=== PATIENT | male | born 1990 | race Caucasian/White ===

== ENCOUNTER 2017-11-21 14:07 | Observation (INO) | payer OTHER ==
[2017-11-21] MEDS ORDERED: NS 1,000 ML IV ONE (15:51)
--- NOTE | 2017-11-21 15:52 | EDPHY ---
H & P Stated Complaint: periumbilical pain since 10 am Time Seen by Provider: 11/21/17 15:50 HPI/ROS: HPI: This is a 27-year-old male who presents with Chief Complaint: Periumbilical pain since 10:00 a.m. Location: Periumbilical Quality: Acute sharp pain Duration: Since 10:00 a.m. Signs and Symptoms: no fever, + nausea, no vomiting, no hematemesis, no blood in stool, no abdominal bloating, no diarrhea, no back pain, no urinary symptoms , no testicular/groin pain, no indigestion, no chest pain, no shortness of breath Timing: Acute Severity: 01/15 Context: Patient has a history of irritable bowel syndrome presents with sudden onset of periumbilical pain around 10:00 a.m. 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 Denies any vomiting, diarrhea, fevers, urinary symptoms. Patient reports that he had abdominal fullness and cramping around 8:00 a.m. this morning in his "upper stomach." He felt like he needed to use the bathroom. He went to use the bathroom and had a bowel movement but the pain did not relieve itself. Patient denies any radiation of the pain. No history of abdominal surgeries. Last meal was breakfast this morning at 8:00 a.m. Modifying Factors: None Comment: ROS: see HPI Constitutional: No fever, no chills, no weight loss Eyes: No blurred vision Respiratory: No shortness of breath, no cough Cardiovascular: No chest pain, no palpitations Gastrointestinal: + nausea, no vomiting, no diarrhea, no hematemesis, no blood in stool Genitourinary: No dysuria, no blood in urine Extremities: No myalgias, no edema Neurologic: No weakness, no numbness Skin: No rashes, no petechiae Hematologic: No bruising, no bleeding MEDICAL/SURGICAL/SOCIAL HISTORY: Medical history: Irritable bowel syndrome, testicular torsion as a child, depression, GERD Surgical history: Denies Social history: Never smoked. Family history noncontributory. CONSTITUTIONAL: Nontoxic-appearing young adult white male, awake and alert, no obvious distress HEENT: Atraumatic and normocephalic, PERRL, EOMI. Nares patent; no rhinorrhea; no nasal mucosal edema. Tympanic membranes clear. Oropharynx clear, no exudate and moist pink mucosa. Airway patent. No lymphadenopathy. No meningismus. Cardiovascular: Normal S1/S2, regular rate, regular rhythm, without murmur rub or gallop. PULMONARY/CHEST: Symmetrical and nontender. Clear to auscultation bilaterally. Good air movement. No accessory muscle usage. ABDOMEN: Soft, nondistended, periumbilical and right lower quadrant moderate tenderness, no rebound, + guarding, + peritoneal signs, no masses or organomegaly. No CVAT. Bowel sounds heard x4 quadrants EXTREMITIES: 2/2 pulses, strength 5/5, no deformities, no clubbing, no cyanosis or edema. NEUROLOGICAL: no focal neuro deficits. GCS 15. SKIN: Warm and dry, no erythema. no rash. Good capillary refill. Source: Patient Exam Limitations: No limitations - Personal History Current Tetanus/Diphtheria Vaccine: No - Medical/Surgical History Hx Asthma: No Hx Chronic Respiratory Disease: No Hx Diabetes: No Hx Cardiac Disease: No Hx Renal Disease: No Hx Cirrhosis: No Hx Alcoholism: No Hx HIV/AIDS: No Hx Splenectomy or Spleen Trauma: No Other PMH: ibs. testicular torsion as child - Social History Smoking Status: Never smoked Constitutional: Initial Vital Signs Temperature (C) 36.9 C 11/21/17 14:10 Heart Rate 72 11/21/17 14:10 Respiratory Rate 16 11/21/17 14:10 Blood Pressure 137/76 H 11/21/17 14:10 O2 Sat (%) 97 11/21/17 14:10 O2 Delivery Mode Room Air Allergies/Adverse Reactions: No Known Allergies Allergy (Unverified 11/21/17 14:10) Home Medications: Medication Instructions Recorded Cetirizine [ZyrTEC 10 mg (*)] 10 mg PO DAILY 11/21/17 Dicyclomine [Bentyl 10 MG (*)] 10 mg PO DAILY PRN 11/21/17 Escitalopram Oxalate [Lexapro] 5 mg PO HS 11/21/17 LORazepam [Ativan (*)] 0.5 mg PO DAILY PRN 11/21/17 Omeprazole Magnesium [Prilosec] 10 mg PO DAILY 11/21/17 Medical Decision Making ED Course/Re-evaluation: Labs, urinalysis, CT abdomen and pelvis scan, IV fluids, IV medications ordered Vital signs reviewed and stable upon arrival. No signs of fever. Given 1 L normal saline, IV Zofran and IV morphine 4 mg 1620: Labs reviewed. WBC 12.2 K with left shift of 84 K. Total bili 1.5, unconjugated bili 1.2. No signs of acute kidney injury, electrolyte imbalance, pancreatitis. 1704: Reassessed patient who is requesting pain medication. IV Dilaudid 1 mg given. 1715: Called by radiologist who advised that CT abdomen and pelvis scan shows signs consistent with appendicitis, measuring 1 cm and 2 appendicolith. IV Zosyn 3.375 g ordered after speaking with Dr. Rabago. 1720: ED decision to consult surgery. Spoke with Dr. Rabago who kindly agrees to consult on the patient and take to the OR. This patient was seen under the supervision of my secondary supervising physician. I evaluated care for this patient independently. Discussed this patient with Dr. Keating who did not see the patient. Differential Diagnosis: Abdominal pain including but not limited to appendicitis, cholecystitis, gastritis and urinary tract infection. - Data Points Laboratory Results: Laboratory Results 11/21/17 15:49 11/21/17 15:49 Medications Given: Hydromorphone HCl (Dilaudid) 0.2 - 0.4 mg IVP Q1HR PRN PRN Reason: Pain, Breakthrough Stop: 12/01/17 18:04 Last Admin: 11/21/17 21:19 Dose: 0.4 mg Ketorolac Tromethamine (Toradol) 15 mg IVP Q6HRS [place] Stop: 11/27/17 00:00 Last Admin: 11/22/17 05:35 Dose: 15 mg Discontinued Medications Bupivacaine HCl/Epinephrine Bitart (Bupivacaine/Epi) Confirm Administered Dose 30 ml .ROUTE .STK-MED ONE Stop: 11/21/17 17:40 Last Admin: 11/21/17 20:10 Dose: 30 ml Citric Acid/Sodium Citrate (Bicitra) 30 ml PO ONCE ONE Stop: 11/21/17 19:05 Last Admin: 11/21/17 19:07 Dose: 30 ml Hydromorphone HCl (Dilaudid) 1 mg IVP EDNOW ONE Stop: 11/21/17 17:03 Last Admin: 11/21/17 17:15 Dose: 1 mg Sodium Chloride (Ns) 1,000 mls @ 0 mls/hr IV EDNOW ONE; Wide Open PRN Reason: Protocol Stop: 11/21/17 15:52 Last Admin: 11/21/17 16:07 Dose: 1,000 mls Piperacillin/Tazobactam/Dextrose (Zosyn 3.375 Gm (Premix)) 50 mls @ 100 mls/hr IV EDNOW ONE PRN Reason: Protocol Stop: 11/21/17 17:49 Last Admin: 11/21/17 17:36 Dose: 50 mls Ketorolac Tromethamine (Toradol) 30 mg IVP ONCE ONE Stop: 11/21/17 18:06 Last Admin: 11/21/17 19:50 Dose: Not Given Morphine Sulfate (Morphine) 4 mg IVP EDNOW ONE Stop: 11/21/17 15:59 Last Admin: 11/21/17 16:08 Dose: 4 mg Ondansetron HCl (Zofran) 4 mg IVP EDNOW ONE Stop: 11/21/17 15:59 Last Admin: 11/21/17 16:08 Dose: 4 mg Departure - Departure Disposition: [facility] Acute Clinical Impression: Acute appendicitis with generalized peritonitis Condition: Good
[2017-11-21] MEDS ORDERED: ONDANSETRON 4 MG/2 ML VIAL IVP ONE (15:58)
[2017-11-21 16:02] LABS: PLATELET COUNT 213 10^3/uL (150-400)
[2017-11-21] MEDS ORDERED: IOPAMIDOL (ISOVUE-300) 100 ML BTL ONE (16:47)
[2017-11-21] MEDS ORDERED: HYDROmorphONE/DILAUDID 2 MG/ML INJ IVP ONE (17:02)
[2017-11-21] MEDS ORDERED: HYDROmorphONE/DILAUDID 1 MG/ML INJ ONE (17:13)
[2017-11-21] MEDS ORDERED: PIPERACILLIN/TAZO 3.375 GM/DEX 50 ML IV ONE (17:20)
[2017-11-21] MEDS ORDERED: BUPIVACAINE/EPI 0.5% 30 ML SDV ONE (17:39)
[2017-11-21] MEDS ORDERED: HYDROCODONE/APAP 5/325 TAB PO PRN (18:05)
[2017-11-21] MEDS ORDERED: ONDANSETRON 4 MG/2 ML VIAL IVP PRN (18:05)
[2017-11-21] MEDS ORDERED: HYDROmorphONE/DILAUDID 1 MG/ML INJ IVP PRN (18:05)
[2017-11-21] MEDS ORDERED: ACETAMINOPHEN 325 MG TAB PO PRN (18:05)
[2017-11-21] MEDS ORDERED: KETOROLAC 30 MG/1 ML SDV IVP ONE (18:05)
--- NOTE | 2017-11-21 18:11 | POSTOPPROG ---
Post Op Note Date of Operation: 11/21/17 Surgeon: Mark Rabago Anesthesia: GET(General Endotracheal) Pre-op Diagnosis: acute appendicitis, umbilical hernia Post-op Diagnosis: same Procedure: lap appy, umby Findings: thickened appendix. no suppuration or perforation. Inf/Abcess present in the surg proc area at time of surgery?: Yes Depth: Organ Space EBL: Minimal Specimen(s): appendix
--- NOTE | 2017-11-21 18:25 | GCON ---
[f rep st] CONSULTATION DATE OF CONSULTATION: 11/21/2017 REFERRING PHYSICIAN: Rommel Keating MD REASON FOR EVALUATION: Appendicitis. HISTORY OF PRESENT ILLNESS: 27-year-old male with a significant history for IBS ; diarrhea predominant, presents to the emergency room today with a 1-day history of sudden onset of periumbilical pain with right lower quadrant localization. Symptoms started approximately 10 o'clock this morning while at work. He went to bed feeling well last night. His bowel movements have been normal for him. No significant change in diarrhea or character. No voiding complaints. No prior history of similar complaints. No nausea or vomiting. No fevers or chills. He left work early. Notes that the car ride was especially miserable over bumps. Arrived to the emergency room. ED workup disclosed leukocytosis with a thickened appendix on CT imaging. Surgery has been requested for further recommendations. PAST MEDICAL HISTORY: Hypertriglyceridemia, anxiety, irritable bowel syndrome. PAST SURGICAL HISTORY: Testicular torsion repair. MEDICATIONS: Prilosec, Zyrtec, dicyclomine p.r.n., Lexapro, Ativan p.r.n. ALLERGIES: No known drug allergies. SOCIAL HISTORY: No alcohol, no tobacco. He is . He is a pharmacy technician inpatient. FAMILY HISTORY: Notable for gallbladder disease. REVIEW OF SYSTEMS: Notable for above GI complaints only. PHYSICAL EXAMINATION: VITAL SIGNS: Temperature 36.7. Blood pressure 126/76. Pulse 78. Respirations 16. GENERAL: Patient is alert, appropriate, comfortable at present time. HEENT: Anicteric. No cervical or supraclavicular lymphadenopathy. HEART: Regular without murmurs. LUNGS: Clear bilaterally. ABDOMEN: Soft, focal right lower quadrant tenderness with mild guarding. No rebound. No Rovsing sign. Small fat containing reducible umbilical hernia. Normal bilateral groins. EXTREMITIES: Without edema. NEUROLOGIC: Alert and appropriate. SKIN: Without rashes. LABORATORY DATA/IMAGING: White count 12, hemoglobin 16, platelets of 200. Electrolytes within reference range. Alkaline phosphatase 75, total bilirubin 1.5, conjugated fraction 0.3. Transaminases normal. Lipase normal. CT images were directly reviewed on PACS, multiple appendicoliths present with mild wall thickening and mild tip stranding. No free fluid. No free air. IMPRESSION: 1. Acute appendicitis. 2. Umbilical hernia. PLAN: Laparoscopic appendectomy with umbilical herniorrhaphy. Risks and benefits were explained including bleeding, infection, open conversion, as well as alternative diagnoses. All questions were answered. He desires to proceed. /[id number]/MODL MTDD
[2017-11-21] MEDS ORDERED: CITRIC ACID/SODIUM CITRATE 30 ML UDCUP PO ONE (19:04)
[2017-11-21] MEDS ORDERED: CITRIC ACID/SODIUM CITRATE 30 ML UDCUP ONE (19:05)
--- NOTE | 2017-11-21 19:05 | PDANEPAE ---
ANE Past Medical History - Cardiovascular History Hx Hypertension: No Hx Arrhythmias: No Hx Chest Pain: No Hx Coronary Artery / Peripheral Vascular Disease: No Hx CHF / Valvular Disease: No Hx Palpitations: No - Pulmonary History Hx COPD: No Hx Asthma/Reactive Airway Disease: No Hx Recent Upper Respiratory Infection: No Hx Oxygen in Use at Home: No Hx Sleep Apnea: No - Endocrine History Hx Diabetes: No Hypothyroid: No Hyperthyroid: No Obesity: no ANE Review of Systems Review of Systems: ANE Patient History - Allergies Allergies/Adverse Reactions: No Known Allergies Allergy (Unverified 11/21/17 14:10) - Home Medications Home Medications: Lexapro 11/21/17 [Last Taken Unknown] Prilosec 11/21/17 [Last Taken Unknown] - NPO status NPO Since - Liquids (Date): 11/21/17 NPO Since - Liquids (Time): 08:30 NPO Since - Solids (Date): 11/21/17 NPO Since - Solids (Time): 08:30 - Smoking Hx Smoking Status: Never smoked ANE Labs/Vital Signs - Labs Result Diagrams: 11/21/17 15:49 11/21/17 15:49 - Vital Signs Blood Pressure: 114/63 Heart Rate: 69 Respiratory Rate: 18 O2 Sat (%): 97 Height: 182.88 cm Weight: 74.843 kg ANE Physical Exam - Airway Neck exam: FROM Mallampati Score: Class 1 Mouth exam: normal dental/mouth exam - Pulmonary Pulmonary: no respiratory distress - Cardiovascular Cardiovascular: regular rate and rhythym - ASA Status ASA Status: II, E ANE Anesthesia Plan Anesthesia Plan: general endotracheal anesthesia
[2017-11-21] MEDS ORDERED: PROPOFOL/EMULSION 500 MG/50 ML BOTTLE IV ONE (19:16)
[2017-11-21] MEDS ORDERED: fentaNYL 100 MCG/2 ML INJ ONE (19:16)
[2017-11-21] MEDS ORDERED: ONDANSETRON 4 MG/2 ML VIAL ONE ×2 (19:47→19:54)
[2017-11-21] MEDS ORDERED: KETOROLAC 30 MG/1 ML SDV ONE (19:54)
[2017-11-21] MEDS ORDERED: SUGAMMADEX SODIUM 200 MG/2 ML VIAL IVP ONE (19:54)
[2017-11-21] MEDS ORDERED: DEXAMETHASONE 4 MG/ML VIAL ONE (19:54)
[2017-11-21] MEDS ORDERED: PROMETHAZINE HCL 25 MG/ML INJ IVP PRN (20:06)
[2017-11-21] MEDS ORDERED: NS 500 ML IV PRN (20:06)
[2017-11-21] MEDS ORDERED: NALOXONE HCL 0.4 MG/ML INJ IVP PRN (20:06)
[2017-11-21] MEDS ORDERED: fentaNYL 100 MCG/2 ML INJ IVP PRN (20:06)
--- NOTE | 2017-11-21 20:07 | POSTANESTH ---
Post Anesthetic Evaluation Cardiovascular Status: Normal, Stable Respiratory Status: Normal, Stable Level of Consciousness/Mental Status: Can Participate in Eval Pain Control: Adequate, Prn Tx Ordered Nausea/Vomiting Control: Adequate, Prn Tx Ordered Complications Possibly Related to Anesthesia: None Noted
--- NOTE | 2017-11-21 20:21 | GOP ---
[f rep st] OPERATIVE REPORT DATE OF OPERATION: 11/21/2017 SURGEON: Mark Rabago MD ANESTHESIA: General. ANESTHESIOLOGIST: Bayron Mckeon MD. PREOPERATIVE DIAGNOSIS: Acute appendicitis, umbilical hernia. POSTOPERATIVE DIAGNOSIS: Acute appendicitis, umbilical hernia. PROCEDURE PERFORMED: Laparoscopic appendectomy with umbilical herniorrhaphy. FINDINGS: Early appendicitis. INDICATIONS: 27-year-old male with acute appendicitis. He is undergoing surgical repair at this time. Risks and benefits were explained of bleeding, infection, open conversion, as well as alternative diagnoses. All questions were answered. He desires to proceed. Pre existing umbilical hernia is being repaired concurrently. DESCRIPTION OF PROCEDURE: General anesthesia was induced. The abdomen was pre- injected with 0.5% Marcaine with epinephrine. A curvilinear infraumbilical incision was created. The umbilical stalk was transected at its fascial expansion. A 1.5 cm umbilical defect was present with reducible omental fat. The fat and sac were cleared back to healthy-appearing fascial edges. A 10 mm trocar was placed under direct visualization. Two additional 5 mm ports were inserted into the lower midline. The appendix was acutely thickened without suppuration or perforation. This was elevated up in the operative field. The mesoappendix was divided with Harmonic Scalpel. The base was transected flush with the cecum with an endoscopic RUTHY stapler. The specimen was brought through the umbilical port site intact using an EndoCatch pouch. Satisfactory hemostasis was assured. Trocars were removed under direct visualization. The umbilical defect was closed transversely with a running Vicryl suture. The wounds were closed in layers with absorbables by Dermabond. The patient was taken to recovery uneventfully. /[id number]/MODL MTDD
[2017-11-21] MEDS: KETOROLAC 15 MG/1 ML SDV IVP SCH (23:56)
[2017-11-22] MEDS: KETOROLAC 15 MG/1 ML SDV IVP SCH (05:35)
--- NOTE | 2017-11-22 06:44 | SOAPPROG ---
SOAP Progress Note Assessment/Plan: Assessment:no overnight issues. min pain. no nausea. no vomiting. avss. comfortable. abd soft. incis clean. doing well home today. Plan: 11/22/17 06:44 Objective: Vital Signs Temp Pulse Resp BP Pulse Ox 36.9 C 62 14 110/68 93 11/22/17 00:30 11/22/17 00:30 11/22/17 00:30 11/22/17 00:30 11/22/17 00:30 11/21/17 11/22/17 11/23/17 05:59 05:59 05:59 Intake Total 1880 Output Total 5 Balance 1875 ICD10 Worksheet Patient Problems: Problems Problem Status Onset Acute appendicitis with generalized peritonitis Acute
[2017-11-22 07:46] VITALS: BP 109/64
== END 2017-11-22 09:00 | disposition home or self-care (01) ==
LOC: FOB 20:55
PROVIDERS: ADMIT Surgery; ATTEND Surgery
PROC: 0DTJ4ZZ Resection of Appendix, Percutaneous Endoscopic Approach (ICD-10-PCS; principal; 2017-11-21 18:30)
DX: K35.2 Acute appendicitis with generalized peritonitis (principal); K42.9 Umbilical hernia without obstruction or gangrene; K58.0 Irritable bowel syndrome with diarrhea; F41.9 Anxiety disorder, unspecified
CPT/HCPCS: 44970; 74177; G0378; 96365; J1100; J1170; J1885; J2270; J2405; J2543; J2704; J3010; Q9967